=== PATIENT | female | born 1955 | race Two or more races ===

== ENCOUNTER → 2016-09-17 | Outpatient (CLI) | payer OTHER | END | disposition home or self-care (01) | LOC: CFH 07:08 | PROVIDERS: ATTEND Nurse Practitioner Women's Health | DX: Z12.31 Encounter for screening mammogram for malignant neoplasm of breast (principal) | CPT/HCPCS: 77063; G0202 ==

== ENCOUNTER → 2017-11-01 | Outpatient (CLI) | payer OTHER | END | disposition home or self-care (01) | LOC: CFH 14:11 | PROVIDERS: ATTEND Internal Medicine | DX: Z12.31 Encounter for screening mammogram for malignant neoplasm of breast (principal) | CPT/HCPCS: 77063; 77080; 77067 ==

== ENCOUNTER → 2018-03-07 | Outpatient (CLI) | payer OTHER | END | disposition home or self-care (01) | LOC: CFH 08:26 | PROVIDERS: ATTEND Internal Medicine | DX: E34.8 Other specified endocrine disorders (principal); G31.9 Degenerative disease of nervous system, unspecified; G93.0 Cerebral cysts | CPT/HCPCS: 70551; 82565 ==

== ENCOUNTER → 2018-11-12 | Outpatient (CLI) | payer OTHER | END | disposition home or self-care (01) | LOC: CFH 12:23 | PROVIDERS: ATTEND Obstetrics & Gynecology | DX: Z12.31 Encounter for screening mammogram for malignant neoplasm of breast (principal); M51.36 Other intervertebral disc degeneration, lumbar region; N60.02 Solitary cyst of left breast; N60.01 Solitary cyst of right breast | CPT/HCPCS: 72148; 76641; 77063; 77067 ==

== ENCOUNTER → 2018-11-26 | Outpatient (CLI) | payer OTHER | END | disposition home or self-care (01) | LOC: CFH 10:12 | PROVIDERS: ATTEND Internal Medicine | DX: M54.5 Low back pain (principal); M25.559 Pain in unspecified hip | CPT/HCPCS: 72170 ==

== ENCOUNTER 2019-03-16 07:06 | Outpatient (CLI) | payer OTHER | END 2019-03-16 23:59 | disposition home or self-care (01) | LOC: RAD 07:06 | PROVIDERS: ATTEND Internal Medicine | DX: K21.0 Gastro-esophageal reflux disease with esophagitis (principal) | CPT/HCPCS: 74220; 76700 ==

== ENCOUNTER 2019-11-17 07:28 | Outpatient (CLI) | payer OTHER | END 2019-11-17 23:59 | disposition home or self-care (01) | LOC: CFH 07:28 | PROVIDERS: ATTEND Obstetrics & Gynecology | DX: Z12.31 Encounter for screening mammogram for malignant neoplasm of breast (principal); Z13.820 Encounter for screening for osteoporosis; R92.1 Mammographic calcification found on diagnostic imaging of breast | CPT/HCPCS: 76641; 77063; 77067; 77080 ==

== ENCOUNTER → 2020-12-01 | Outpatient (CLI) | payer OTHER | END | disposition home or self-care (01) | LOC: CFH 10:05 | PROVIDERS: ATTEND Obstetrics & Gynecology | DX: Z12.31 Encounter for screening mammogram for malignant neoplasm of breast (principal); N60.02 Solitary cyst of left breast; N60.01 Solitary cyst of right breast | CPT/HCPCS: 76641; 77063; 77067 ==

== ENCOUNTER → 2021-01-06 | Outpatient (CLI) | payer OTHER | END | disposition home or self-care (01) | LOC: CFH 10:51 | PROVIDERS: ATTEND Internal Medicine | DX: M51.36 Other intervertebral disc degeneration, lumbar region (principal); M25.78 Osteophyte, vertebrae | CPT/HCPCS: 72100; 72170 ==